=== PATIENT | male | born 1955 | race Caucasian/White ===

== ENCOUNTER 2018-01-08 06:11 | Emergency (ER) | payer SELFPAY, OTHER | END 2018-01-08 08:40 | disposition left against medical advice (07) | LOC: E/R 08:40 | DX: Z53.21 Procedure and treatment not carried out due to patient leaving prior to being seen by health care provider (principal) ==

== ENCOUNTER 2018-01-09 09:17 | Emergency (ER) | payer OTHER ==
[2018-01-09 09:56] LABS: ADD MAN DIFF? NO
[2018-01-09] MEDS: SOD CHLORIDE 0.9% 1,000 ML IV (10:07)
[2018-01-09] MEDS: ONDANSETRON 4 MG INJ IV (10:07)
[2018-01-09] MEDS: morphine 4 MG/ML VIAL IV (10:08)
[2018-01-09 10:11] LABS: BASOPHILS % 0.3 % (0.0-2.0); EOSINOPHILS % 0.3 % (0.0-7.0); HEMATOCRIT 47.5 % (42.0-52.0); HEMOGLOBIN 16.5 g/dl (14.0-18.0); LYMPHOCYTES # 1.2 10^3/ul (0.8-2.9); LYMPHOCYTES % 10.9 % (15.0-51.0); MEAN CORPUSCULAR HEMOGLOBIN 31.1 pg (29.0-33.0); MEAN CORPUSCULAR HGB CONC 34.7 g/dl (32.0-37.0); MEAN CORPUSCULAR VOLUME 89.5 fl (82.0-101.0); MEAN PLATELET VOLUME 10.4 fl (7.4-10.4); MONOCYTE # 1.3 10^3/ul (0.3-0.9); MONOCYTES % 11.5 % (0.0-11.0); NEUTROPHIL # 8.7 10^3/ul (1.6-7.5); NEUTROPHILS % 76.6 % (39.0-77.0); PLATELET COUNT 202 10^3/UL (140-415); RED BLOOD COUNT 5.31 10^6/ul (4.70-6.10)
[2018-01-09 10:11] LABS: WHITE BLOOD COUNT 11.3 10^3/ul (4.8-10.8)
[2018-01-09 10:30] LABS: ANION GAP 29 (8-16); BLOOD UREA NITROGEN 9 mg/dl (7-20); CALCIUM 10.1 mg/dl (8.4-10.2); CARBON DIOXIDE 17 mmol/L (21-31); CHLORIDE 103 mmol/L (97-110); CREATININE 0.86 mg/dl (0.61-1.24); GLUCOSE 106 mg/dl (70-220); POTASSIUM 3.9 mmol/L (3.5-5.1); SODIUM 145 mmol/L (135-144)
[2018-01-09 10:43] LABS: TROPONIN-I < 0.012 ng/ml (0.00-0.12)
[2018-01-09] MEDS: CLINDAMYCIN 300 MG CAP PO (10:48)
== END 2018-01-09 11:32 | disposition home or self-care (01) ==
LOC: E/R 09:17
DX: K02.9 Dental caries, unspecified (principal); R55 Syncope and collapse; L03.211 Cellulitis of face; I10 Essential (primary) hypertension; I25.2 Old myocardial infarction; R11.10 Vomiting, unspecified; Z98.61 Coronary angioplasty status; Z87.891 Personal history of nicotine dependence; Z79.82 Long term (current) use of aspirin
CPT/HCPCS: 36415; 80048; 84484; 85025; 96374; 96375; 99284-25